=== PATIENT | male | born 2000 | race African-American/Black ===

== ENCOUNTER 2020-02-15 10:53 | Emergency (ER) | payer BC, MEDICAID ==
[~2020-02-15] VITALS: Ht 177.8 cm; Wt 59.0 kg
[2020-02-15] MEDS ORDERED: HYDR-3281 PO (11:00)
[2020-02-15] MEDS ORDERED: NALOXONE HCL 0.4 MG/ML 1ML VIAL IV ONE (11:20)
[2020-02-15] MEDS ORDERED: NALOXONE HCL 0.4 MG/ML 1ML VIAL ONE (11:21)
[2020-02-15] MEDS: NALOXONE HCL 1 MG/ML 2ML VIAL IV ONE (11:30)
[2020-02-15] MEDS ORDERED: SODIUM CHLORIDE 0.9% 1,000 ML IV ONE (11:30)
[2020-02-15 11:50] LABS: MEAN CORPUSCULAR HEMOGLOBIN 26.4 pg (28.0-32.0); MEAN PLATELET VOLUME 8.1 fl (7.4-10.4); PLATELET 406 x1000/uL (130-400); RED BLOOD CELL COUNT 2.77 mill/uL (4.7-6.1); RED CELL DISTRIBUTION WIDTH 23.6 % (11.6-14.6)
[2020-02-15 11:54] LABS: CHLORIDE 109 mEq/L (98-107)
[2020-02-15 11:56] LABS: INR 1.2; PROTHROMBIN TIME 12.5 sec (9.6-11.0)
[2020-02-15 11:59] LABS: HEMATOCRIT. 20.5 % (42.0-52.0); HEMOGLOBIN. 7.3 g/dL (14.0-18.0)
[2020-02-15] MEDS ORDERED: LACTATED RINGERS 1,000 ML IV STA ×2 (12:13→14:06)
[2020-02-15] MEDS ORDERED: DEXTROSE 50% WATER 50ML SYRINGE IV ONE (12:15)
[2020-02-15] MEDS ORDERED: CEFEPIME 1,000 MG in DEXTROSE 5% WATER 50 ML IV SCH (12:15)
[2020-02-15] MEDS ORDERED: AZITHROMYCIN 500 MG in DEXT 5% WATER 250 ML IV SCH (12:15)
[2020-02-15] MEDS ORDERED: DEXT 5%/LACTATED RINGERS 1,000 ML IV ONE (12:15)
[2020-02-15 12:42] LABS: PLATELET ESTIMATE NORMAL
[2020-02-15 13:11] VITALS: BP 93/58
== END 2020-02-15 15:05 | disposition left against medical advice (07) ==
LOC: ER 10:53 → EDBEDREQTM 12:50 → EDBEDREQ 12:50 → ER 15:05 → CANBEDREQ 19:16
DX: T40.2X1A Poisoning by other opioids, accidental (unintentional), initial encounter (principal); D64.9 Anemia, unspecified; E16.2 Hypoglycemia, unspecified; Y92.89 Other specified places as the place of occurrence of the external cause
CPT/HCPCS: 36415; 71045; 80053; 82962; 83605; 85025; 85044; 85610; 87040; 96365; 96367; 96375; 99284; J0456; J0692; J2310; J7030; J7060; J7120; J7121